=== PATIENT | female | born 1975 | race Caucasian/White ===

== ENCOUNTER → 2025-01-31 | Outpatient (CLI) | payer BC ==
[~2025-01-31] MED LIST: ISOVUE-370 76% 100 ML VIAL ONE
== END ==
LOC: M PLAIMG 08:34
PROVIDERS: ATTEND Otolaryngology
DX: C73 Malignant neoplasm of thyroid gland (principal); J84.10 Pulmonary fibrosis, unspecified
CPT/HCPCS: 70491; Q9967

== ENCOUNTER 2025-04-12 09:46 | Day surgery (SDC) | payer BC ==
[~2025-04-12] VITALS: Ht 160 cm; Wt 76.6 kg
[~2025-04-12 09:46] MED LIST changes: -ISOVUE-370 76% 100 ML VIAL ONE; +LANS30CA93 PO; +METO1TAB7 PO; +TIRZ15PE3 SC
[2025-04-12] MEDS ORDERED: ONDANSETRON 4MG/2ML VIAL As Ordered ONE (10:32)
[2025-04-12] MEDS ORDERED: dexAMETHasone 4 MG/ML 1 ML VIAL As Ordered ONE (10:32)
[2025-04-12] MEDS ORDERED: ROCURONIUM BROMIDE 50MG/5ML VIAL As Ordered ONE (10:32)
[2025-04-12] MEDS ORDERED: LIDOCAINE 2% 100 MG/5 ML SDV (FOR ANES.) As Ordered ONE (10:32)
[2025-04-12] MEDS ORDERED: dexmedeTOMIDine (4 MCG/ML) 200 MCG/50 ML BTL As Ordered ONE (10:33)
[2025-04-12] MEDS ORDERED: MIDAZOLAM INJ 2 MG/2 ML VIAL As Ordered ONE (10:33)
[2025-04-12] MEDS: LR 1,000 ML IV SCH (10:40)
[2025-04-12] MEDS: EPINEPHrine 1 MG/ML INJ 30 ML MD-VIAL As Ordered ONE (11:13)
[2025-04-12] MEDS ORDERED: SEVOFLURANE INHAL SOLN 250 ML BTL As Ordered ONE (11:30)
[2025-04-12] MEDS ORDERED: ESMOLOL 100 MG/10 ML VIAL As Ordered ONE (13:09)
[2025-04-12] MEDS ORDERED: HYDROmorphone HCL 2 MG/ML 1 ML VIAL As Ordered ONE (13:13)
[2025-04-12] MEDS ORDERED: SUGAMMADEX SODIUM 200 MG/2 ML VIAL As Ordered ONE (13:13)
[2025-04-12] MEDS ORDERED: PHENYLephrine 500MCG 5ML (100MCG/ML) SYRINGE As Ordered ONE (15:21)
[2025-04-12] MEDS: LIDOCAINE W/EPINEPHrine 1% 20 ML VIAL As Ordered ONE (15:39)
[2025-04-12] MEDS ORDERED: ACETAMINOPHEN 1000MG/100ML IV BAG As Ordered ONE (16:17)
[2025-04-12] MEDS: ONDANSETRON 4MG/2ML VIAL IV PRN (16:39)
[2025-04-12] MEDS: HYDROMORPHONE HCL 0.5 MG/0.5 ML SYRINGE IV PRN (16:40)
[2025-04-12 18:07] VITALS: BP 129/63; TEMP 97.1; O2SAT 96
== END 2025-04-12 18:16 | disposition home or self-care (01) ==
LOC: M SDC 09:46
PROVIDERS: ATTEND Otolaryngology
DX: C73 Malignant neoplasm of thyroid gland (principal); I10 Essential (primary) hypertension; Z79.899 Other long term (current) drug therapy; Z91.040 Latex allergy status
CPT/HCPCS: 60220; 88307; 93005; J0131; J1100; J1171; J1805; J2250; J2371; J2405; J3010